=== PATIENT | female | born 1965 | race Two or more races ===

== ENCOUNTER 2017-05-04 07:52 | Inpatient (IN) | payer MEDICAID ==
[~2017-05-04] VITALS: Ht 160 cm; Wt 75.5 kg
[2017-05-04] MEDS ORDERED: SODIUM CHLORIDE 0.9% 1,000 ML IV ONE (08:09)
[2017-05-04] MEDS ORDERED: SODIUM CHLORIDE FLUSH 10ML SYR IVF ONE (08:30)
[2017-05-04] MEDS ORDERED: INSU100I28 SQ (08:41)
[2017-05-04] MEDS ORDERED: INSU100C SQ-INSULIN (08:42)
[2017-05-04] MEDS ORDERED: LISI-170 PO (08:42)
[2017-05-04 09:00] LABS: BASOPHILS # (AUTO) 0.03 x10^3/uL (0-0.1); BASOPHILS % (AUTO) 0 % (0-1); EOSINOPHILS # (AUTO) 0.45 x10^3/uL (0-0.4); EOSINOPHILS % (AUTO) 5 % (1-7); LYMPHOCYTES # (AUTO) 2.47 x10^3/uL (1-3.4); LYMPHOCYTES % (AUTO) 26 % (22-44); MD NO; MEAN CORPUSCULAR HEMOGLOBIN 30.3 pg (27.0-34.8); MEAN CORPUSCULAR HGB CONC 34.5 g/dL (32.4-35.8); MEAN CORPUSCULAR VOLUME 87.9 fL (80-100); MEAN PLATELET VOLUME 10.4 fL (7.4-10.4); MONOCYTES # (AUTO) 0.61 x10^3/uL (0.2-0.8); MONOCYTES % (AUTO) 6 % (2-9); NEUTROPHILS # (AUTO) 6.11 x10^3/uL (1.8-6.8); NEUTROPHILS % (AUTO) 63 % (42-75); PLATELET COUNT 222 x10^3/uL (130-400); RED CELL DISTRIBUTION WIDTH 12.2 % (9.6-15.2)
[2017-05-04 09:04] LABS: ALANINE AMINOTRANSFERASE 52 U/L (12-78); ALBUMIN 3.3 g/dL (3.4-5.0); ANION GAP 8 mmol/L (5-15); CALCIUM 9.5 mg/dL (8.5-10.1); CHLORIDE 98 mmol/L (98-107); CREATININE 0.88 mg/dL (0.55-1.02)
[2017-05-04 09:07] LABS: ALKALINE PHOSPHATASE 135 U/L (45-117); BILIRUBIN,TOTAL 0.5 mg/dL (0.2-1.0); TOTAL PROTEIN 7.2 g/dL (6.4-8.2)
[2017-05-04 09:55] LABS: CULTURE INDICATED? YES; MICROSCOPIC INDICATED
[2017-05-04] MEDS ORDERED: GADOBUTROL 7.5 MMOL/7.5 ML PFS ONE (10:14)
[2017-05-04 11:50] VITALS: BP 153/97
[2017-05-04 14:31] VITALS: BP 146/93
[2017-05-04] MEDS ORDERED: BISACODYL 10 MG SUPP PR PRN (15:30)
[2017-05-04] MEDS ORDERED: ONDANSETRON 2MG/ML, 2ML IVPush PRN (15:30)
[2017-05-04] MEDS ORDERED: POLYETHYLENE GLYCOL 17 GM PACKET PO PRN (15:30)
[2017-05-04] MEDS ORDERED: ENALAPRILAT 1.25 MG/ML, 2ML IVPush PRN (15:30)
[2017-05-04] MEDS ORDERED: hydrALAzine 20 MG/ML, 1ML IVPush PRN (15:30)
[2017-05-04] MEDS ORDERED: ACETAMINOPHEN 325 MG TABLET PO PRN (15:30)
[2017-05-04 16:00] LABS: HEMOGLOBIN A1C 11.9 % (4.2-6.3)
[2017-05-04 16:23] LABS: FREE T4 (FREE THYROXINE) 1.05 ng/dL (0.76-1.46); THYROID STIMULATING HORMONE 0.534 mIU/L (0.358-3.740)
[2017-05-04] MEDS: HEPARIN 5,000 UNITS/ML, 1ML SQ SCH (18:01)
[2017-05-04] MEDS: SODIUM CHLORIDE 0.9% 1,000 ML IV SCH (18:02)
[2017-05-04] MEDS: INSULIN LISPRO 100 UNITS/ML, PEN SQ-INSULIN SCH ×2 (18:24→20:25)
[2017-05-04 18:49] VITALS: BP 159/95
[2017-05-04] MEDS ORDERED: MELATONIN 5 MG TABLET PO SCH (21:00)
[2017-05-04] MEDS ORDERED: INSULIN DETEMIR 25 UNIT SQ SCH (21:00)
[2017-05-04] MEDS ORDERED: INSULIN GLARGINE 100 UNITS/ML, PEN SQ-INSULIN SCH (21:30)
[2017-05-05 02:06] VITALS: BP 133/85
[2017-05-05] MEDS: HEPARIN 5,000 UNITS/ML, 1ML SQ SCH ×2 (03:52→11:35)
[2017-05-05] MEDS: SODIUM CHLORIDE 0.9% 1,000 ML IV SCH (03:53)
[2017-05-05 05:33] LABS: CHLORIDE 105 mmol/L (98-107)
[2017-05-05 05:38] LABS: MEAN CORPUSCULAR HEMOGLOBIN 30.5 pg (27.0-34.8); MEAN CORPUSCULAR HGB CONC 34.9 g/dL (32.4-35.8); MEAN CORPUSCULAR VOLUME 87.5 fL (80-100); MEAN PLATELET VOLUME 9.8 fL (7.4-10.4); PLATELET COUNT 211 x10^3/uL (130-400); RED BLOOD COUNT 4.99 x10^6/uL (3.82-5.3)
[2017-05-05 05:49] LABS: ALANINE AMINOTRANSFERASE 43 U/L (12-78); ALBUMIN 2.9 g/dL (3.4-5.0); ALKALINE PHOSPHATASE 91 U/L (45-117); ANION GAP 6 mmol/L (5-15); BILIRUBIN,TOTAL 0.5 mg/dL (0.2-1.0); CALCIUM 8.2 mg/dL (8.5-10.1); CHOL/HDL RATIO 5.3; CHOLESTEROL, TOTAL 179 mg/dL (140-239); CREATININE 0.65 mg/dL (0.55-1.02); HDL CHOL % 19 % (28-40); HDL CHOLESTEROL (DIRECT) 34 mg/dL (40-60); LDL CHOLESTEROL,CALCULATED 93 mg/dL (54-169); LDL/HDL RATIO 2.7 (0.5-3.0); TRIGLYCERIDES 259 mg/dL (50-200); VLDL CHOLESTEROL 52 mg/dL (0-25)
[2017-05-05 05:59] LABS: BASOPHILS # (AUTO) 0.07 x10^3/uL (0-0.1); BASOPHILS % (AUTO) 1 % (0-1); EOSINOPHILS # (AUTO) 0.56 x10^3/uL (0-0.4); EOSINOPHILS % (AUTO) 8 % (1-7); LYMPHOCYTES # (AUTO) 2.78 x10^3/uL (1-3.4); LYMPHOCYTES % (AUTO) 42 % (22-44); MD SCAN; MONOCYTES # (AUTO) 0.67 x10^3/uL (0.2-0.8); MONOCYTES % (AUTO) 10 % (2-9); NEUTROPHILS # (AUTO) 2.62 x10^3/uL (1.8-6.8); NEUTROPHILS % (AUTO) 39 % (42-75)
[2017-05-05] MEDS ORDERED: ASPIRIN 325 MG TABLET EC PO SCH (06:00)
[2017-05-05] MEDS ORDERED: MAGNESIUM SULFATE PMX 2GM/50ML 50 ML IV ONE (07:30)
[2017-05-05 07:32] VITALS: BP 137/81
[2017-05-05] MEDS ORDERED: MAGNESIUM CHLORIDE 64 MG TABLET.DR PO SCH (09:00)
[2017-05-05] MEDS ORDERED: ATORVASTATIN 20 MG TABLET PO SCH (09:00)
[2017-05-05] MEDS ORDERED: SENNA/DOCUSATE TABLET PO SCH (09:00)
[2017-05-05] MEDS ORDERED: LISINOPRIL 20 MG TABLET PO SCH (09:00)
[2017-05-05] MEDS: INSULIN LISPRO 100 UNITS/ML, PEN SQ-INSULIN SCH ×2 (09:12→11:35)
[2017-05-05 09:33] LABS: MICROSCOPIC NOT IND
[2017-05-05 09:38] LABS: CULTURE INDICATED? NO
[2017-05-05] MEDS ORDERED: MULT-750 PO (13:12)
[2017-05-05] MEDS ORDERED: ATOR20TA9 PO (13:12)
[2017-05-05] MEDS ORDERED: INSU100I11 SQ-INSULIN (13:12)
[2017-05-05] MEDS ORDERED: ASPI-650 PO (13:12)
[2017-05-05] MEDS ORDERED: INSU100I28 SQ (13:12)
[2017-05-05 14:05] VITALS: BP 143/87
[2017-05-05] MEDS ORDERED: INSULIN GLARGINE 100 UNITS/ML, PEN SQ-INSULIN SCH (21:00)
== END 2017-05-05 17:35 | disposition home or self-care (01) | DRG 65 ==
LOC: ED 09:03 → 4WST 10:18 → DCLOUNGE 05-05 17:06
PROVIDERS: ADMIT Internal Medicine; ATTEND Internal Medicine
DX: I63.511 Cerebral infarction due to unspecified occlusion or stenosis of right middle cerebral artery (principal); E44.0 Moderate protein-calorie malnutrition; E78.5 Hyperlipidemia, unspecified; F17.210 Nicotine dependence, cigarettes, uncomplicated; I10 Essential (primary) hypertension; E11.65 Type 2 diabetes mellitus with hyperglycemia; Z79.4 Long term (current) use of insulin; Z83.3 Family history of diabetes mellitus; R25.3 Fasciculation
CPT/HCPCS: 36415; 70450; 70553; 71045; 80053; 80061; 81001; 81003; 82306; 82607; 82962; 83036; 83735; 84439; 84443; 85025; 87086; 93005; 93306; 93880; A9585; J1644; J1815; J3475; J7030